=== PATIENT | female | born 1985 | race Caucasian/White ===

== ENCOUNTER 2019-07-22 10:03 | Outpatient (CLI) | payer MEDICAID, SELFPAY ==
--- NOTE | 2019-07-22 10:18 | US_ITS ---
WS: [id number] Abdomen ultrasound, 07/22/2019 Clinical Data: GENERALIZED ABD PAIN Comparison: None. Findings: The pancreas shows no cyst, pseudocyst or evidence of pancreatitis. The liver shows no cysts, masses or dilated intrahepatic ducts. The liver measures 13.59 cm The gallbladder has no stones or sludge. The wall measures 0.24 cm with no pericholecystic fluid. Th e common bile duct is 0.30 cm and no intraductal abnormalities are noted. The right kidney is 4.73 x 5.28 x 10.00 cm. No cysts, masses or hydronephrosis is seen. The left kidney is 5.61 x 6.01 x 11.61 cm. No cysts, masses or hydronephrosis is seen. The abdominal aorta is not dilated and the inferior vena cava has normal flow. No vascular abnormalit ies are seen. The spleen measures 10.78 cm and there are no intrasplenic masses are capsular abnormalities. US/US abdomen complete* [id number] Impression: Negative abdomen ultrasound.
== END 2019-07-22 10:04 | disposition home or self-care (01) ==
LOC: RAD 10:07
PROVIDERS: Family Provider Nurse Practitioner Family; PCP Nurse Practitioner Family; Visit Provider Nurse Practitioner
DX: R10.84 Generalized abdominal pain (principal)
CPT/HCPCS: 76700

== ENCOUNTER → 2021-03-20 12:57 | Outpatient (BNVA) | payer MEDICAID, SELFPAY | PROVIDERS: Family Provider Nurse Practitioner Family; PCP Nurse Practitioner; Visit Provider Registered Nurse Neonatal Intensive Care | DX: Z20.822 Contact with and (suspected) exposure to COVID-19 (principal); R14.1 Gas pain | CPT/HCPCS: 87635 ==

== ENCOUNTER 2021-03-26 21:09 | Emergency (ER) | payer MEDICAID, SELFPAY ==
[2021-03-26 21:14] VITALS: BP 159/103; PULSE 92; RESP 18; TEMP 36.7; O2SAT 97; BMI 38.0
--- NOTE | 2021-03-26 21:36 | W.ED.ABDPA2 ---
HPI - Abdominal Pain General: Chief Complaint: Abdominal Pain Stated Complaint: ADB Pain Time Seen by Provider: 03/26/21 21:20 History of Present Illness: HPI narrative: Patient is a 36-year-old female comes to the ED with abdominal pain. Patient says symptoms started approximately 1 week ago. She went and saw urgent care clinic on March 20 and they found it was abdominal gas pain and sent her home with Gas-X. She says the pain has not improved. Abdominal pain is in the right upper quadrant. Pain then radiates into her back. She rates it currently a 7 out of 10. She endorses having some nausea and decreased appetite as well. She says eating makes pain worse. She says when she lays down her pain gets worse and standing up and ambulating actually improves pain. Denies any fever, chills, chest pain, shortness of breath, emesis, bladder or bowel symptoms, vaginal discharge or vaginal bleeding. Denies being and states that she has had a partial hysterectomy. Associated Symptoms: Reports nausea; Denies chills, constipation, diarrhea, dysuria, fever(s), hematochezia, hematuria and vomiting Review of Systems Const: Reports: change in appetite (Decreased); Denies: fever(s), chills or fatigue Eyes: Denies: change in vision or eye discomfort ENMT: Denies: throat pain, odynophagia, nasal discharge or nasal congestion Card: Denies: chest pain, palpitations, edema, swelling of feet/ankles, dyspnea on exertion or orthopnea Resp: Denies: dyspnea, productive cough or non-productive cough GI: Reports: abdominal pain and nausea; Denies: vomiting, diarrhea, constipation or hematochezia : Denies: flank pain, dysuria or hematuria Musc: Denies: neck pain, back pain or extremity swelling Skin/Breast: Denies: rash or new lesions Neuro: Denies: headache(s), numbness in extremities or weakness in extremities PFSH ED PFSH: Social History Smoking and tobacco status: never smoked Alcohol intake: never Physical Exam Const: COMMON NORMALS: no acute distress, patient oriented x3, healthy appearing and alert GENERAL APPEARANCE: cooperative and comfortable NUTRITIONAL APPEARANCE: overweight HENMT: COMMON NORMALS: normocephalic HEAD & SCALP: normocephalic MOUTH: Normal oral and palatal mucosa present THROAT: posterior oropharynx normal and uvula midline Neck/C-Spine: COMMON NORMALS: supple GENERAL: Yes normal visual inspection Resp: COMMON NORMALS: normal respiratory effort, No retractions, No use of accessory muscles and clear to auscultation bilaterally AUSCULTATION: clear to auscultation bilaterally Cardio: COMMON NORMALS: regular rate, regular rhythm, S1 normal heart sound present, S2 normal heart sound present, No gallops present (Cardio), No clicks present (Cardio), No murmurs present (Cardio) and Peripheral pulses 2+ throughout RATE: regular rate RHYTHM: regular rhythm HEART SOUNDS: S1 normal heart sound present and S2 normal heart sound present PERIPHERAL PULSES: Peripheral pulses 2+ throughout GI: COMMON NORMALS: Normal to inspection, nondistended, normoactive bowel sounds present, Soft to palpation and no masses INSPECTION: Yes central obesity PALPATION: Yes Soft to palpation and Yes Tenderness to palpation present (GI) Details: RUQ (Positive Stiles's sign tenderness) : COMMON NORMALS: Yes no CVA tenderness BLADDER/KIDNEY EXAM: Yes no CVA tenderness Back/Pelvis: COMMON NORMALS: no CVA tenderness Extremity: COMMON NORMALS: normal to inspection and no pedal edema Neuro: COMMON NORMALS: patient oriented x3 SENSORIUM/ORIENTATION: Yes alert GAIT: Yes Normal gait present Skin: GENERAL SKIN EXAM: dry skin Course Vital Signs: Vital signs: Vital Signs Temperature 98.0 F 03/26/21 21:37 Pulse Rate 77 03/26/21 23:36 Respiratory Rate 16 03/26/21 22:35 Blood Pressure 144/93 03/26/21 23:36 Pulse Oximetry 97 03/26/21 23:36 MDM - Abdominal Pain MDM Narrative: Medical decision making narrative: Patient is a 36-year-old female comes to the ED with abdominal pain. Pain located in right upper quadrant and she has Stiles's point tenderness. Endorses some nausea and decreased appetite but denies any vomiting or diarrhea or fevers. Vitals are stable. Patient appears nontoxic and in no acute distress. White blood cell count 15.3 but the rest of the labs are unremarkable. Ultrasound of the gallbladder showed no acute findings. Due to patient's abdominal pain and elevated white blood cell count I ordered CT of abdomen pelvis to further evaluate any cause of abdominal pain. CT of abdomen showed no acute findings. Patient diagnosed abdominal pain and discharged home. She was told to follow-up with her PCP at her next scheduled appointment which is on this coming . Return to ED precautions given. Patient understood agreed with plan. Lab Data: Attestation: I reviewed the patient's lab results. Labs: Lab Results 03/26/21 03/26/21 03/26/21 Range/Units 21:46 21:46 21:46 WBC 15.3 H (4.0-10.0) 10^3/ uL RBC 4.78 (4.1-5.3) 10^6/u L Hgb 14.6 (11.5-15.3) g/dL Hct 43.8 (37.0-47.0) % MCV 91.6 (81-99) fl MCH 30.5 (28.0-34.0) pg MCHC 33.3 (30.0-36.0) g/dL RDW 13.5 (12.1-15.1) % Plt Count 353 (130-400) 10^3/c mm MPV 10.4 (7.4-10.4) fL Neut % (Auto) 63.7 % Lymph % (Auto) 26.7 % [place] % (Auto) 8.3 % Eos % (Auto) 0.7 % Baso % (Auto) 0.3 % Neut # (Auto) 9.71 H (1.8-7.7) 10^3/u L Lymph # (Auto) 4.1 (0.8-4.8) 10^3/u L [place] # (Auto) 1.3 H (0.2-0.9) 10^3/u L Eos # (Auto) 0.1 (0.0-0.8) 10^3/u L Baso # (Auto) 0.1 (0.0-0.1) 10^3/u L Nucleated RBC % (a uto) 0 % Nucleated RBCs # 0.0 /100WBC Sodium 136 (136-145) mmol/L Potassium 4.3 (3.5-5.1) mmol/L Chloride 102 (98-107) mmol/L Carbon Dioxide 24 (22-29) mmol/L Anion Gap 14.3 (5-19) BUN 7 (6-20) mg/dL Creatinine 0.4 L (0.5-0.9) mg/dL GFR Calculation 181.6 H (90-130) mL/min Glucose 84 (65-115) mg/dL Calculated Osmolal ity 279 L (285-295) mOsm/k g Calcium 8.9 (8.5-10.5) mg/dL Total Bilirubin 0.2 (0.15-1.2) mg/dL AST 13 (0-32) U/L ALT 19 (0-33) U/L Alkaline Phosphata se 73 (35-105) IU/L Total Protein 6.7 (6.6-8.7) g/dL Albumin 4.1 (3.5-5.2) g/dL Globulin 2.6 (1.3-4.6) g/dL Lipase 30 (13-60) U/L HCG, Qual Negative (Negative) Urine Color (Yellow) Urine Appearance (CLEAR) Urine pH (5-7) Ur Specific Gravit y (1.005-1.030) Urine Protein (Negative) Urine Glucose (UA) (Normal) Urine Ketones (Negative) Urine Blood (Negative) Urine Nitrate (Negative) Urine Bilirubin (Negative) Urine Urobilinogen (Negative) mg/dL Ur Leukocyte Liyah ase (Negative) 03/26/21 Range/Units 21:46 WBC (4.0-10.0) 10^3/ uL RBC (4.1-5.3) 10^6/u L Hgb (11.5-15.3) g/dL Hct (37.0-47.0) % MCV (81-99) fl MCH (28.0-34.0) pg MCHC (30.0-36.0) g/dL RDW (12.1-15.1) % Plt Count (130-400) 10^3/c mm MPV (7.4-10.4) fL Neut % (Auto) % Lymph % (Auto) % [place] % (Auto) % Eos % (Auto) % Baso % (Auto) % Neut # (Auto) (1.8-7.7) 10^3/u L Lymph # (Auto) (0.8-4.8) 10^3/u L [place] # (Auto) (0.2-0.9) 10^3/u L Eos # (Auto) (0.0-0.8) 10^3/u L Baso # (Auto) (0.0-0.1) 10^3/u L Nucleated RBC % (a uto) % Nucleated RBCs # /100WBC Sodium (136-145) mmol/L Potassium (3.5-5.1) mmol/L Chloride (98-107) mmol/L Carbon Dioxide (22-29) mmol/L Anion Gap (5-19) BUN (6-20) mg/dL Creatinine (0.5-0.9) mg/dL GFR Calculation (90-130) mL/min Glucose (65-115) mg/dL Calculated Osmolal ity (285-295) mOsm/k g Calcium (8.5-10.5) mg/dL Total Bilirubin (0.15-1.2) mg/dL AST (0-32) U/L ALT (0-33) U/L Alkaline Phosphata se (35-105) IU/L Total Protein (6.6-8.7) g/dL Albumin (3.5-5.2) g/dL Globulin (1.3-4.6) g/dL Lipase (13-60) U/L HCG, Qual (Negative) Urine Color Yellow (Yellow) Urine Appearance Clear (CLEAR) Urine pH 7 (5-7) Ur Specific Gravit y 1.010 (1.005-1.030) Urine Protein Neg (Negative) Urine Glucose (UA) Norm (Normal) Urine Ketones Negative (Negative) Urine Blood Neg (Negative) Urine Nitrate Negative (Negative) Urine Bilirubin Neg (Negative) Urine Urobilinogen Norm (Negative) mg/dL Ur Leukocyte Liyah ase Negative (Negative) Imaging Data ^: US: Attestation: I personally reviewed and interpreted this imaging study as follows: Radiologist's impression: [address] [address] Ultrasound Report Signed Patient: Grant Franco Unit #: [id number] : 1985 Age/Sex: 36 / F ADM Date: 03/26/21 Loc: ER Room/Bed: Attending Dr: Ordering Provider/Ordering MD: Shola Gil Date of Service: 03/26/21 Procedure(s): US gall bladder [id number] Accession Number(s): [id number] Report Number: [id number] PROCEDURE INFORMATION: Exam: US Abdomen, Limited; Right Upper Quadrant Exam date and time: 03/26/2021 9:35 PM Age: 36 years old Clinical indication: Abdominal pain; Acute; Additional info: Ruq pain, nausea and decreased appetite TECHNIQUE: Imaging protocol: US abdomen. Real time ultrasound with image documentation. Limited exam focused on the right upper quadrant. COMPARISON: US abdomen complete* [id number] 07/22/2019 10:46 AM FINDINGS: Liver: Normal. No masses. Gallbladder: Normal. No gallstones. There is no gallbladder wall thickening. Common bile duct: Normal. No dilation. Pancreas: Visualized pancreas is unremarkable. Right kidney: Normal. No mass. No hydronephrosis. US/US gall bladder [id number] IMPRESSION: No acute findings. Dictated By: Ry Wolff DO Signed By: Ry Wolff DO Signed Date/Time: 03/26/212248 DD/ 47 CT Abd/Pel: Attestation: I personally reviewed and interpreted this imaging study as follows: Radiologist's impression: [address] [address] [address] Scan Report Signed Patient: Grant Franco Unit #: [id number] : 1985 Age/Sex: 36 / F ADM Date: 03/26/21 Loc: ER Room/Bed: Attending Dr: Ordering Provider/Ordering MD: Shola Gil Date of Service: 03/26/21 Procedure(s): CT abdomen pelvis w con* [id number] Accession Number(s): [id number] Report Number: [id number] PROCEDURE INFORMATION: Exam: CT Abdomen And Pelvis With Contrast Exam date and time: 03/26/2021 10:20 PM Age: 36 years old Clinical indication: Abdominal pain; Localized; Right upper quadrant (ruq); Prior surgery; Surgery type: Partial hysterectomy; Patient HX: Ruq pain with nausea. ; Additional info: Ruq abdominal pain radiates to back, nausea TECHNIQUE: Imaging protocol: Computed tomography of the abdomen and pelvis with contrast. Radiation optimization: All CT scans at this facility use at least one of these dose optimization techniques: automated exposure control; mA and/or kV adjustment per patient size (includes targeted exams where dose is matched to clinical indication); or iterative reconstruction. Contrast material: OMNI 300; Contrast volume: 95 ml; Contrast route: INTRAVENOUS (IV); COMPARISON: US gall bladder [id number] 03/26/2021 9:59 PM RADIATION DOSE METRICS: Total DLP (mGy-cm): 1875.21 FINDINGS: Liver: Normal. No mass. Gallbladder and bile ducts: Normal. No calcified stones. No ductal dilation. Pancreas: Normal. No ductal dilation. Spleen: Normal. No splenomegaly. Adrenal glands: Normal. No mass. Kidneys and ureters: A few scattered subcentimeter low-attenuation lesions noted within the kidneys, likely small cysts. Punctate nonobstructing stone in the inferior pole the left kidney series 602, image 34. Stomach and bowel: Unremarkable. No obstruction. No mucosal thickening. Appendix: No evidence of appendicitis. Intraperitoneal space: Unremarkable. No free air. No significant fluid collection. Vasculature: Unremarkable. No abdominal aortic aneurysm. Lymph nodes: Unremarkable. No enlarged lymph nodes. Urinary bladder: Unremarkable as visualized. Reproductive: Hysterectomy changes. Unremarkable CT appearance of the ovaries. Bones/joints: Unremarkable. No acute fracture. Soft tissues: Unremarkable. CT/CT abdomen pelvis w con* [id number] IMPRESSION: 1. No acute findings. 2. Punctate nonobstructing stone in the lower pole the left kidney. COMMENTS: Consistent with the [employer]'s Incidental Findings Committee white paper (J Am Artem Radiol 2018): Any incidental renal lesion less than 1 cm or classified as too small to characterize, or any incidental cystic renal lesion characterized as simple-appearing, is likely benign. No follow-up imaging is recommended for these lesions per consensus recommendations based on imaging criteria. Radiation Dose CTDIVOL = (mGy): DLP = 1875.21 (mGy-cm) Dictated By: Ry Wolff DO Signed By: Ry Wolff DO Signed Date/Time: 03/26/212255 DD/ 54 Discharge Plan Discharge Patient Disposition: Home Clinical Impression: Abdominal pain Qualifiers: Abdominal location: right upper quadrant Qualified Code(s): R10.11 - Right upper quadrant pain Condition: Stable Prescriptions: No Action Gas Relief (simethicone) 250 mg capsule 250 mg PO DAILY PRN (Reason: abdominal distention) Qty: 30 RF: 0 Discharge Orders: Discharge ED (Routine); Ordered 03/26/21 Ordered By: Shola Gil Discharge Diet: Advance as tolerated Discharge Activity: Increase activity as tolerated Patient Instructions: Abdominal Pain (ED) Activity Restrictions/Additional Instructions: Follow-up with medical provider as directed at your next scheduled appointment on . Take [id number] Tylenol or Motrin for any pain or fevers. Make sure to drink plenty of fluids and stay hydrated. Start with a clear liquid diet and then slowly advance as tolerated. Return to the ER or your medical provider if condition worsens. Please read and understand discharge instructions. Thank you for choosing [facility] for your healthcare needs today. Please realize this is an emergency room and that we are providing you with a medical screening exam and this may not be complete and all inclusive of all the testing and or work up that you may need to determine your ailment or severity of your illness. It is very important that you follow up as instructed or that you return to the Emergency Department should you have concerns or if your condition changes or worsens in any way. Coding Level of Care Code ED Knitting Demonstrator for Randy Kowalski Exam Comprehensive
[2021-03-26 21:37] VITALS: BP 136/92; PULSE 83; RESP 17; TEMP 36.7; O2SAT 95
[2021-03-26 21:53] LABS: Add Urine Microscopic? NO; Charge for UA Resulting for Rev
[2021-03-26 21:54] LABS: Basophils # 0.1 10^3/uL (0.0-0.1); Basophils % 0.3 %; Eosinophils # 0.1 10^3/uL (0.0-0.8); Eosinophils % 0.7 %; Hematocrit 43.8 % (37.0-47.0); Hemoglobin 14.6 g/dL (11.5-15.3); Lymphocytes # 4.1 10^3/uL (0.8-4.8); Lymphocytes % 26.7 %; Mean Corpuscular HGB Conc 33.3 g/dL (30.0-36.0); Mean Corpuscular Hemoglobin 30.5 pg (28.0-34.0); Mean Corpuscular Volume 91.6 fl (81-99); Mean Platelet Volume 10.4 fL (7.4-10.4); Monocytes # 1.3 10^3/uL (0.2-0.9); Monocytes % 8.3 %; Neutrophils # 9.71 10^3/uL (1.8-7.7); Neutrophils % 63.7 %; Nucleated Red Blood Cells % 0 %; Platelet Count 353 10^3/cmm (130-400); Red Blood Count 4.78 10^6/uL (4.1-5.3); Red Cell Distribution Width 13.5 % (12.1-15.1); White Blood Count 15.3 10^3/uL (4.0-10.0)
[2021-03-26 22:00] LABS: Bilirubin Urine Neg (Negative); Blood Urine Neg (Negative); Glucose Urine UA Norm (Normal); Ketones Urine Negative (Negative); Leukocyte Esterase Urine Negative (Negative); Nitrate Urine Negative (Negative); Protein Urine Neg (Negative); Urine Appearance Clear (CLEAR); Urine Color Yellow (Yellow); Urobilinogen Urine Norm (Negative); pH Urine 7 (5-7)
[2021-03-26 22:03] LABS: HCG, Serum Qual Negative (Negative)
[2021-03-26 22:12] LABS: Alanine Aminotransferase 19 U/L (0-33); Albumin Level 4.1 g/dL (3.5-5.2); Alkaline Phosphatase 73 IU/L (35-105); Aspartate Amino Transferase 13 U/L (0-32); Blood Urea Nitrogen 7 mg/dL (6-20); Calcium 8.9 mg/dL (8.5-10.5); Carbon Dioxide 24 mmol/L (22-29); Chloride 102 mmol/L (98-107); Globulin 2.6 g/dL (1.3-4.6); Glomerular Filtration Rate 181.6 mL/min (90-130); Glucose 84 mg/dL (65-115); Lipase 30 U/L (13-60); Osmolality Calculated 279 mOsm/kg (285-295); Sodium 136 mmol/L (136-145); Total Bilirubin 0.2 mg/dL (0.15-1.2); Total Protein 6.7 g/dL (6.6-8.7)
[2021-03-26 22:13] LABS: Anion Gap 14.3 (5-19); Potassium 4.3 mmol/L (3.5-5.1)
--- NOTE | 2021-03-26 22:20 | CTR_ITS ---
PROCEDURE INFORMATION: Exam: CT Abdomen And Pelvis With Contrast Exam date and time: 03/26/2021 10:20 PM Age: 36 years old Clinical indication: Abdominal pain; Localized; Right upper quadrant (ruq); Prior surgery; Surgery type: Partial hysterectomy; Patient HX: Ruq pain with nausea. ; Additional info: Ruq abdominal pain radiates to back, nausea TECHNIQUE: Imaging protocol: Computed tomography of the abdomen and pelvis with contrast. Radiation optimization: All CT scans at this facility use at least one of these dose optimization techniques: automated exposure control; mA and/or kV adjustment per patient size (includes targeted exams where dose is matched to clinical indication); or iterative reconstruction. Contrast material: OMNI 300; Contrast volume: 95 ml; Contrast route: INTRAVENOUS (IV); COMPARISON: US gall bladder [id number] 03/26/2021 9:59 PM RADIATION DOSE METRICS: Total DLP (mGy-cm): 1875.21 FINDINGS: Liver: Normal. No mass. Gallbladder and bile ducts: Normal. No calcified stones. No ductal dilation. Pancreas: Normal. No ductal dilation. Spleen: Normal. No splenomegaly. Adrenal glands: Normal. No mass. Kidneys and ureters: A few scattered subcentimeter low-attenuation lesions noted within the kidneys, likely small cysts. Punctate nonobstructing stone in the inferior pole the left kidney series 602, image 34. Stomach and bowel: Unremarkable. No obstruction. No mucosal thickening. Appendix: No evidence of appendicitis. Intraperitoneal space: Unremarkable. No free air. No significant fluid collection. Vasculature: Unremarkable. No abdominal aortic aneurysm. Lymph nodes: Unremarkable. No enlarged lymph nodes. Urinary bladder: Unremarkable as visualized. Reproductive: Hysterectomy changes. Unremarkable CT appearance of the ovaries. Bones/joints: Unremarkable. No acute fracture. Soft tissues: Unremarkable. CT/CT abdomen pelvis w con* [id number] IMPRESSION: 1. No acute findings. 2. Punctate nonobstructing stone in the lower pole the left kidney. COMMENTS: Consistent with the [employer]'s Incidental Findings Committee white paper (J Am Artem Radiol 2018): Any incidental renal lesion less than 1 cm or classified as too small to characterize, or any incidental cystic renal lesion characterized as simple-appearing, is likely benign. No follow-up imaging is recommended for these lesions per consensus recommendations based on imaging criteria. Radiation Dose CTDIVOL = (mGy): DLP = 1875.21 (mGy-cm)
[2021-03-26] MEDS: iohexol 300 mg/mL 100 mL Btl IV (22:27)
[2021-03-26] MEDS: sodium chloride 0.9% 500 ML 999 ML IV (22:34)
[2021-03-26 22:35] VITALS: BP 141/89; PULSE 84; RESP 16; O2SAT 98
[2021-03-26 23:36] VITALS: BP 144/93; PULSE 77; O2SAT 97
== END 2021-03-26 23:30 | disposition home or self-care (01) ==
PROVIDERS: Emergency Provider Physician Assistant
DX: R10.11 Right upper quadrant pain (principal)
CPT/HCPCS: 36415; 74177; 76705; 80053; 81003; 83690; 84703; 85025; 87040; 99283; J7040; Q9967